=== PATIENT | female | born 2000 | race African-American/Black ===

== ENCOUNTER 2019-04-16 03:11 | Inpatient (IN) ==
[2019-04-16 03:45] LABS: Apearance,Urine CLEAR (Clear); Bilirubin,Urine Negative (Negative); Blood, Urine Negative (Negative); Glucose,Urine (UA) Negative (Negative); Hyaline Casts,Urine 16 /LPF (0-3); Ketones,Urine Negative (Negative); Mucus,Urine Occasional /LPF (Occasional); Nitrite,Urine Negative (Negative); Protein,Urine >=500 MG/DL; RBC,Urine 1 /HPF (0-4); Squamous Epithelial Cell,Urine Occasional /HPF (0-10); Urine Color Yellow (Yellow); Urine Urobilinogen < 2.0 EU/DL (0.2-1.0); WBC,Urine 6 /HPF (0-6)
[2019-04-16] MEDS ORDERED: ONDANSETRON 4 MG/2 ML VIAL IV PRN (03:53)
[2019-04-16] MEDS ORDERED: MEPERIDINE 50 MG/1 ML VIAL IV PRN (03:53)
[2019-04-16] MEDS ORDERED: ACETAMINOPHEN 325 MG TABLET PO PRN (03:53)
[2019-04-16] MEDS ORDERED: BUTORPHANOL 2 MG/ML VIAL IV PRN (03:53)
[2019-04-16] MEDS ORDERED: MAGNESIUM SULF RIDER 100 ML IV ONE (03:57)
[2019-04-16] MEDS ORDERED: hydrALAZINE 20 MG/1 ML VIAL IV ONE ×2 (03:59→05:06)
[2019-04-16] MEDS ORDERED: hydrALAZINE 20 MG/1 ML VIAL ONE (04:00)
[2019-04-16] MEDS ORDERED: MAGNESIUM SULF DRIP 40 GM/1,000 ML ML IV SCH ×2 (04:00→21:30)
[2019-04-16] MEDS ORDERED: BETAMETH SODIUM PHOS/ACETATE 30 MG/5 ML VIAL ONE (04:04)
[2019-04-16] MEDS: LACTATED RINGERS 1,000 ML IV SCH ×2 (04:15→14:37)
[2019-04-16] MEDS ORDERED: BETAMETH SODIUM PHOS/ACETATE 30 MG/5 ML VIAL IM SCH (04:30)
[2019-04-16 04:39] LABS: Basophils % 0.2 % (0.0-0.8); Eosinophils # 0.1 10*3/uL (0.0-0.87); Eosinophils % 1.2 % (0.00-10.9); Hematocrit 35.6 VOL% (35.7-47.0); Hemoglobin 11.7 GM/DL (12.0-16.0); Immature Granulocytes % 0.4 %; Immature Granulocytes Absolute 0.03 #; Lymphocytes # 2.3 10*3/uL (1.4-4.0); Lymphocytes % 27.4 % (21.3-54.2); Mean Corpuscular HGB Conc 32.9 GM/DL (32-36); Mean Corpuscular Volume 82.4 FL (87-102); Mean Platelet Volume 9.6 FL (9.6-12.0); Monocytes % 6.8 % (1.7-12.7); Platelet Count 247 T/CUMM (130-400); Red Blood Count 4.32 MC/CUMM (3.8-5.5); Red Cell Distribution Width 14.9 % (9.3-17.3); White Blood Count 8.4 T/CUMM (4-12)
[2019-04-16 05:02] LABS: INR 0.8; PT Patient Result 8.5 SECS (9.6-12.2); Partial Thromboplastin Time 25.4 SECS (20.8-36.0)
[2019-04-16 05:10] LABS: Alanine Aminotransferase 30 U/L (13-56); Albumin 1.9 G/DL (3.4-5.0); Alkaline Phosphatase 269 U/L (45-117); Aspartate Amino Transferase 31 U/L (0-37); Bilirubin,Total < 0.39 MG/DL (0.2-1.0); Blood Urea Nitrogen 9 MG/DL (7-18); Calcium 8.2 MG/DL (8.5-10.1); Estimated Glom Filtration Rate 129 ML/MIN; Glucose 80 MG/DL (74-106); Osmolality,Calculated 274.5 MOS/KG (273-304); Uric Acid 6.2 MG/DL (2.6-6.0)
[2019-04-16] MEDS: NIFEdipine 10 MG CAPSULE PO SCH ×2 (05:12→11:07)
[2019-04-16 06:23] LABS: Apearance,Urine CLEAR (Clear); Bacteria,Urine Occasional /HPF (Few); Bilirubin,Urine Negative (Negative); Blood, Urine Negative (Negative); Glucose,Urine (UA) Negative (Negative); Hyaline Casts,Urine 4 /LPF (0-3); Ketones,Urine Negative (Negative); Mucus,Urine Occasional /LPF (Occasional); Nitrite,Urine Negative (Negative); Protein,Urine >=500 MG/DL; RBC,Urine 1 /HPF (0-4); Squamous Epithelial Cell,Urine Occasional /HPF (0-10); Urine Color Yellow (Yellow); Urine Specific Gravity 1.017 (1.001-1.035); Urine Urobilinogen < 2.0 EU/DL (0.2-1.0); WBC,Urine 7 /HPF (0-6)
[2019-04-16 08:47] LABS: Barbiturates Screen,Urine Negative (Negative); Benzodiazepines Screen,Urine Negative (Negative); Cannabinoid Screen,Urine Negative (Negative); Opiate Screen,Urine Negative (Negative); Phencyclidine Screen,Urine Negative (Negative)
[2019-04-16] MEDS ORDERED: CALCIUM GLUCONATE 1,000 MG in SODIUM CHLORIDE 0.9% 100 ML IV PRN ×2 (16:36→21:47)
[2019-04-16] MEDS ORDERED: CITRIC ACID/SODIUM CITRATE 30 ML UDCUP PO ONE (16:46)
[2019-04-16] MEDS ORDERED: FAMOTIDINE 20 MG/2 ML VIAL IV ONE (16:46)
[2019-04-16] MEDS ORDERED: ceFAZolin 2,000 MG in PREMIX 1 EACH IV ONE (16:46)
[2019-04-16] MEDS ORDERED: OXYTOCIN/LR 20 UNIT/1,000 ML BAG IV ONE ×2 (16:50→21:30)
[2019-04-16] MEDS ORDERED: OXYTOCIN 10 UNIT/ML VIAL IM ONE (16:50)
[2019-04-16] MEDS ORDERED: OXYTOCIN 10 UNIT/ML VIAL ONE (16:59)
[2019-04-16] MEDS ORDERED: METHYLERGONOVINE 0.2 MG/1 ML AMP ONE (17:08)
[2019-04-16] MEDS ORDERED: miSOPROStoL 200 MCG TABLET ONE (17:08)
[2019-04-16] MEDS ORDERED: CARBOPROST TROMETHAMINE 250 MCG/ML AMP IM ONE (17:08)
[2019-04-16] MEDS ORDERED: ALBUMIN 5% 12.5 GM/250 ML VIAL IV ONE (17:22)
[2019-04-16] MEDS ORDERED: MORPHINE 10 MG/10 ML VIAL ONE (17:22)
[2019-04-16] MEDS ORDERED: BUPIVACAINE SPINAL 0.75% 2 ML AMP SPINAL ONE (17:22)
[2019-04-16] MEDS ORDERED: PHENYLEPHRINE 1 MG/10 ML SYRINGE IV ONE (17:23)
[2019-04-16] MEDS ORDERED: KETOROLAC 30 MG/1 ML VIAL ONE (18:27)
[2019-04-16] MEDS ORDERED: ONDANSETRON 4 MG/2 ML VIAL ONE (18:32)
[2019-04-16] MEDS ORDERED: RHO(D) IMMUNE GLOBULIN 300 MCG SYRINGE IM ONE (20:13)
[2019-04-16] MEDS: IBUPROFEN 800 MG TABLET PO PRN (20:54)
[2019-04-16] MEDS: DOCUSATE SODIUM 100 MG CAPSULE PO SCH (20:56)
[2019-04-17] MEDS ORDERED: CALCIUM GLUCONATE 1,000 MG/10 ML VIAL IV ONE (08:58)
[2019-04-17] MEDS: MULTIVITAMIN (PRENATAL) TABLET PO SCH (09:23)
[2019-04-17] MEDS: DOCUSATE SODIUM 100 MG CAPSULE PO SCH ×2 (09:23→21:50)
[2019-04-17] MEDS: IBUPROFEN 800 MG TABLET PO PRN ×2 (09:23→21:50)
[2019-04-17 09:44] LABS: Basophils % 0.2 % (0.0-0.8); Hematocrit 36.2 VOL% (35.7-47.0); Hemoglobin 11.8 GM/DL (12.0-16.0); Immature Granulocytes % 0.7 %; Immature Granulocytes Absolute 0.11 #; Lymphocytes # 1.3 10*3/uL (1.4-4.0); Lymphocytes % 7.8 % (21.3-54.2); Mean Corpuscular HGB Conc 32.6 GM/DL (32-36); Mean Corpuscular Volume 83.4 FL (87-102); Mean Platelet Volume 9.9 FL (9.6-12.0); Monocytes % 4.9 % (1.7-12.7); Neutrophils % 86.4 % (38.7-73.9); Platelet Count 272 T/CUMM (130-400); Red Blood Count 4.34 MC/CUMM (3.8-5.5); Red Cell Distribution Width 15.2 % (9.3-17.3); White Blood Count 16.6 T/CUMM (4-12)
[2019-04-17] MEDS: LACTATED RINGERS 1,000 ML IV SCH (10:20)
[2019-04-17] MEDS: MAGNESIUM HYDROXIDE SUSP 30 ML UDCUP PO PRN (21:50)
[2019-04-18] MEDS: LACTATED RINGERS 1,000 ML IV SCH (04:12)
[2019-04-18] MEDS ORDERED: ETONOGESTREL 68 MG IMPLANT SUBCUT ONE (09:00)
[2019-04-18] MEDS: MULTIVITAMIN (PRENATAL) TABLET PO SCH (09:56)
[2019-04-18] MEDS: DOCUSATE SODIUM 100 MG CAPSULE PO SCH ×2 (09:56→20:27)
[2019-04-18] MEDS: SIMETHICONE CHEW 80 MG TABLET PO PRN (12:08)
[2019-04-19] MEDS ORDERED: LIDOCAINE 1% 20 ML VIAL MISC INJ ONE (07:22)
[2019-04-19] MEDS: DOCUSATE SODIUM 100 MG CAPSULE PO SCH ×2 (09:44→19:42)
[2019-04-19] MEDS: MULTIVITAMIN (PRENATAL) TABLET PO SCH (09:44)
[2019-04-19] MEDS: SIMETHICONE CHEW 80 MG TABLET PO PRN (19:41)
[2019-04-19] MEDS: MAGNESIUM HYDROXIDE SUSP 30 ML UDCUP PO PRN (19:41)
[2019-04-20] MEDS: DOCUSATE SODIUM 100 MG CAPSULE PO SCH ×2 (00:13→08:41)
[2019-04-20] MEDS: MAGNESIUM HYDROXIDE SUSP 30 ML UDCUP PO PRN (08:41)
[2019-04-20] MEDS: MULTIVITAMIN (PRENATAL) TABLET PO SCH (08:42)
[2019-04-20] MEDS: SIMETHICONE CHEW 80 MG TABLET PO PRN (08:42)
[2019-04-20 11:53] VITALS: BP 131/91
== END 2019-04-20 13:30 | disposition home or self-care (01) | DRG 540 ==
LOC: N.LDOUT 03:11 → N.LD 03:14 → N.OB 04-17 15:19
PROVIDERS: ADMIT Obstetrics & Gynecology; ATTEND Obstetrics & Gynecology
PROC: LDCSECT (ICD-10-PCS; 2019-04-16 17:45)